=== PATIENT | male | born 1975 | race Caucasian/White ===

== ENCOUNTER 2019-07-13 05:50 | Emergency (ER) | payer MEDICAID ==
[~2019-07-13] VITALS: Ht 182.9 cm; Wt 66.0 kg
[2019-07-13 05:55] VITALS: BP 101/69
[2019-07-13] MEDS ORDERED: ONDANSETRON 2MG/ML, 2ML IVPush ONE (06:30)
[2019-07-13] MEDS ORDERED: SODIUM CHLORIDE FLUSH 10ML SYR IVF ONE (06:30)
[2019-07-13] MEDS ORDERED: FAMOTIDINE 20 MG/2 ML IV ONE (06:30)
[2019-07-13 06:35] LABS: BASOPHILS # (AUTO) 0.11 x10^3/uL (0-0.1); BASOPHILS % (AUTO) 1 % (0-1); EOSINOPHILS # (AUTO) 0.17 x10^3/uL (0-0.4); EOSINOPHILS % (AUTO) 2 % (1-7); LYMPHOCYTES # (AUTO) 2.03 x10^3/uL (1-3.4); LYMPHOCYTES % (AUTO) 20 % (22-44); MD NO; MEAN CORPUSCULAR HEMOGLOBIN 30.3 pg (27.5-34.5); MEAN CORPUSCULAR HGB CONC 33.4 g/dL (33.2-36.2); MEAN CORPUSCULAR VOLUME 90.9 fL (81-97); MEAN PLATELET VOLUME 8.7 fL (7.4-10.4); MONOCYTES % (AUTO) 11 % (2-9); NEUTROPHILS # (AUTO) 6.71 x10^3/uL (1.8-6.8); NEUTROPHILS % (AUTO) 66 % (42-75); PLATELET COUNT 245 x10^3/uL (130-400); RED BLOOD COUNT 5.37 x10^6/uL (4.38-5.82); RED CELL DISTRIBUTION WIDTH 13.2 % (9.4-14.8)
[2019-07-13] MEDS ORDERED: ONDANSETRON 2MG/ML, 2ML ONE (06:40)
[2019-07-13] MEDS ORDERED: FAMOTIDINE 20 MG/2 ML ONE (06:41)
[2019-07-13 06:46] LABS: ALANINE AMINOTRANSFERASE 16 U/L (12-78); ALBUMIN 3.4 g/dL (3.4-5.0); ANION GAP 7 mmol/L (5-15); CALCIUM 9.1 mg/dL (8.5-10.1); CHLORIDE 107 mmol/L (98-107)
[2019-07-13 06:49] LABS: ALKALINE PHOSPHATASE 52 U/L (45-117); BILIRUBIN,TOTAL 0.3 mg/dL (0.2-1.0); TOTAL PROTEIN 7.6 g/dL (6.4-8.2)
--- NOTE | 2019-07-13 07:00 | NUR ---
ASSUMED CARE. BEDSIDE ULTRASOUND BEING PERFORMED
--- NOTE | 2019-07-13 07:35 | NUR ---
AMBULATED TO BATHROOM WITHOUT ASSISTANCE. URINE SAMPLE OBTAINED.
[2019-07-13 07:51] LABS: MICROSCOPIC NOT IND
[2019-07-13 07:55] LABS: CULTURE INDICATED? NO
--- NOTE | 2019-07-13 08:00 | NUR ---
pt tolerated juice and crackers with no nausea
== END 2019-07-13 08:44 | disposition home or self-care (01) ==
LOC: ED 07:22
DX: R10.84 Generalized abdominal pain (principal); R11.2 Nausea with vomiting, unspecified; R19.7 Diarrhea, unspecified; F31.9 Bipolar disorder, unspecified; J44.9 Chronic obstructive pulmonary disease, unspecified
CPT/HCPCS: 36415; 76700; 80053; 81003; 83690; 85025; 96374; 96375; 99284; J2405; J3490